=== PATIENT | female | born 1995 | race Caucasian/White ===

== ENCOUNTER → 2021-12-06 15:33 | Outpatient (CLI) | payer OTHER, SELFPAY ==
[2021-12-06 18:11] LABS: COVID19 -Nasal RAPID Negative (Negative)
== END ==
PROVIDERS: PCP Family Medicine; Referring Provider Family Medicine; Visit Provider Family Medicine
DX: Z20.822 Contact with and (suspected) exposure to COVID-19 (principal)
CPT/HCPCS: 87635

== ENCOUNTER → 2021-12-06 15:51 | Outpatient (CLI) | payer OTHER, SELFPAY ==
[2021-12-06 17:37] LABS: Add Manual Diff / Slide Review NO; Basophils Absolute Auto 0 /uL (0-100); Basophils Percent Auto 0.4 % (0-2); Eosinophils Absolute Auto 100 /uL (0-450); Eosinophils Percent Auto 1.5 % (2-4); Hematocrit 40.1 % (36-46); Hemoglobin 13.6 g/dL (12.0-16.0); Lymphocytes Absolute Auto 2000 /uL (1100-4500); Lymphocytes Percent Auto 38.8 % (25-40); Mean Corpuscular HGB Conc 33.9 % (30-36); Mean Corpuscular Hemoglobin 30.6 PG (26-34); Monocytes Absolute Auto 300 /uL (0-900); Monocytes Percent Auto 5.3 % (3-14); Neutrophils Absolute Auto 2900 /uL (1500-7000); Platelet Count 301 X10^3/uL (150-400); Red Blood Cell Count 4.46 X10^6/uL (4.0-5.2); Red Cell Distribution Width 13.3 % (11.6-14.8); White Blood Cell Count 5.3 X10^3/uL (4.5-11.0)
[2021-12-06 17:59] LABS: Alanine Aminotransferase 24 IU/L (<35); Albumin 4.8 g/dL (3.5-5.0); Albumin Globulin Ratio 1.5 (1.0-2.8); Alkaline Phosphatase 34 U/L (38-126); Aspartate Aminotransferase 62 IU/L (14-36); BUN Creatinine Ratio 16.5 (6-22); Bilirubin Total 0.5 mg/dL (0.2-1.3); Blood Urea Nitrogen 15 mg/dL (7-17); Calcium 9.8 mg/dL (8.4-10.2); Carbon Dioxide 31 mmol/L (22-32); Chloride 104 mmol/L (98-107); Estimated Glomerular Filt Rate > 60.0 mL/min (>60); Globulin 3.1 g/dL (1.7-4.1); Glucose 107 mg/dL (70-100); HEMOLYSIS 19 (0-50); Sodium 140 mmol/L (137-145); Total Protein 7.9 g/dL (6.3-8.2)
[2021-12-06 18:29] LABS: TSH w/ Reflex to FT4 0.79 uIU/mL (0.47-4.68)
== END ==
PROVIDERS: PCP Family Medicine; Referring Provider Family Medicine; Visit Provider Family Medicine
DX: F32.A Depression, unspecified (principal); F41.9 Anxiety disorder, unspecified; R00.2 Palpitations; R09.82 Postnasal drip; Z20.822 Contact with and (suspected) exposure to COVID-19
CPT/HCPCS: 36415; 80053; 84443; 85025; 87635

== ENCOUNTER → 2021-12-24 09:57 | Outpatient (CLI) | payer OTHER, SELFPAY ==
[2021-12-24 12:12] LABS: COVID19 -Nasal RAPID Negative (Negative)
== END ==
PROVIDERS: PCP Family Medicine; Referring Provider Family Medicine Sleep Medicine; Visit Provider Family Medicine Sleep Medicine
DX: Z20.822 Contact with and (suspected) exposure to COVID-19 (principal)
CPT/HCPCS: 87635

== ENCOUNTER → 2021-12-24 12:49 | Outpatient (CLI) | payer OTHER, SELFPAY ==
--- NOTE | 2021-12-24 14:34 | PM.TREADMILL ---
Cardiac Stress Test Report Referral & Results Date Patient Seen: 12/24/21 Requesting provider: Jose Rangel Indication: Tachycardia/chest discomfort Rest ECG: Unremarkable Procedure Note: Today following both written and verbal informed consent, the patient was exercised according to a standard Guerrero protocol. The patient exercised for a total of 11 minutes 52 seconds achieving a maximum heart rate of 183. Patient's maximum systolic blood pressure was 170. This was an estimated 12.8 MET's. There are no ST-T segment changes noted normal heart rate and blood pressure response to exercise no dysrhythmias beyond sinus arrhythmia Function aerobic impairment rates -10% on the active scale or 110% of normal Impression: No evidence of ischemia with excellent exercise capacity and no dysrhythmias of note Please note: Actual ECG tracings can be found in the PACS system.
== END ==
PROVIDERS: PCP Family Medicine; Referring Provider Family Medicine; Visit Provider Family Medicine
DX: R07.89 Other chest pain (principal); R00.2 Palpitations; R00.0 Tachycardia, unspecified; Z20.822 Contact with and (suspected) exposure to COVID-19
CPT/HCPCS: 87635; 93016; 93017; 93018; 93246; C9803

== ENCOUNTER → 2021-12-24 14:52 | Outpatient (CLI) | payer OTHER, SELFPAY ==
--- NOTE | 2022-01-16 08:27 | PM.CARDMON.1 ---
[employer] Report Referral & Results Date Patient Seen: 01/24/22 Requesting provider: Jose Rangel Indication: Palpitations Duration of monitoring (days): 14 Diary information: There were 13 patient triggered events and 3 patient diary entries All 16 of these patient events were associated with sinus rhythm only Data: Minimum heart rate identified was 40 beats per minute at 00:43 on 01/06/2022 Maximum sinus heart rate was 179 beats per minute at 05:31 on 12/25/2021 Maximum overall heart rate was 214 beats per minute at 22:11 on 01/05/2022 during a run nonsustained ventricular tachycardia Less than 1% of identified beats were ventricular or supraventricular ectopic in origin, which would classify them as rare. There was only 1 run of nonsustained monomorphic ventricular tachycardia that was 4 beats in duration at the above rate of 214 beats per minute No atrial fibrillation no pauses no SVT identified on this study Impression: 14 day quality assurance monitor final that fails to demonstrate a cardiac dysrhythmia as a source of patient's perceived sense of palpitations per the multiple patient events associated with sinus rhythm only Single 4 beat run of VT also identified Clinical correlation suggested
== END ==
PROVIDERS: PCP Family Medicine; Referring Provider Family Medicine; Visit Provider Family Medicine
DX: R00.2 Palpitations (principal)
CPT/HCPCS: 93246; 93248

== ENCOUNTER → 2022-03-18 15:35 | Outpatient (CLI) | payer OTHER, SELFPAY ==
[2022-03-18 16:40] LABS: Add Manual Diff / Slide Review NO; Basophils Absolute Auto 0 /uL (0-100); Basophils Percent Auto 0.5 % (0-2); Eosinophils Absolute Auto 100 /uL (0-450); Eosinophils Percent Auto 1.1 % (2-4); Hematocrit 40.6 % (36-46); Hemoglobin 13.6 g/dL (12.0-16.0); Lymphocytes Absolute Auto 1800 /uL (1100-4500); Lymphocytes Percent Auto 33.2 % (25-40); Mean Corpuscular HGB Conc 33.6 % (30-36); Mean Corpuscular Hemoglobin 30.3 PG (26-34); Mean Corpuscular Volume 90.2 fL (80-100); Monocytes Absolute Auto 200 /uL (0-900); Monocytes Percent Auto 4.3 % (3-14); Neutrophils Absolute Auto 3300 /uL (1500-7000); Neutrophils Percent Auto 60.9 % (50-75); Platelet Count 299 X10^3/uL (150-400); Red Cell Distribution Width 13.3 % (11.6-14.8); White Blood Cell Count 5.3 X10^3/uL (4.5-11.0)
[2022-03-18 16:47] LABS: Alanine Aminotransferase 19 IU/L (<35); Albumin 4.7 g/dL (3.5-5.0); Albumin Globulin Ratio 1.6 (1.0-2.8); Alkaline Phosphatase 41 U/L (38-126); Aspartate Aminotransferase 31 IU/L (14-36); Bilirubin Total 0.6 mg/dL (0.2-1.3); Blood Urea Nitrogen 17 mg/dL (7-17); Calcium 8.6 mg/dL (8.4-10.2); Carbon Dioxide 27 mmol/L (22-32); Chloride 104 mmol/L (98-107); Estimated Glomerular Filt Rate > 60 mL/min (>60); Globulin 2.9 g/dL (1.7-4.1); Glucose 101 mg/dL (70-100); HEMOLYSIS < 15 (0-50); Potassium 3.7 mmol/L (3.4-5.1); Sodium 142 mmol/L (137-145); Total Protein 7.6 g/dL (6.3-8.2)
[2022-03-18 17:14] LABS: TSH w/ Reflex to FT4 0.74 uIU/mL (0.47-4.68)
[2022-03-20 16:22] LABS: ANA Screen, IFA Negative (.)
== END ==
PROVIDERS: PCP Family Medicine; Referring Provider Family Medicine; Visit Provider Family Medicine
DX: R51.9 Headache, unspecified (principal); R20.0 Anesthesia of skin; R20.2 Paresthesia of skin; R74.8 Abnormal levels of other serum enzymes
CPT/HCPCS: 36415; 80053; 84443; 85025; 86038

== ENCOUNTER → 2022-07-05 08:21 | Outpatient (CLI) | payer OTHER, SELFPAY ==
--- NOTE | 2022-07-05 08:23 | DI.RAD.S_ITS ---
PROCEDURE: XR HIP W PEL IF DONE RT 2V INDICATIONS: right hip pain TECHNIQUE: AP pelvis with lateral view of the right hip. COMPARISON: [facility], CT, CT ABDOMEN PELVIS WITH CONTRAST, 05/08/2022, 22:04. FINDINGS: Bones: No acute fractures or dislocations. Pelvic ring appears intact. No suspicious bony lesions. Minimal lateral acetabular spurring is seen bilaterally. Soft tissues: The visualized bowel gas pattern is normal. No suspicious soft tissue calcifications. IMPRESSION: No acute osseous abnormality. If the symptoms persist, consider cross sectional imaging such as MRI or CT for further assessment. Dictated by: Danny Rose M.D. on 07/05/2022 at 9:16 Approved by: Danny Rose M.D. on 07/05/2022 at 9:19
== END ==
PROVIDERS: PCP Family Medicine; Referring Provider Family Medicine; Visit Provider Family Medicine
DX: M25.551 Pain in right hip (principal)
CPT/HCPCS: 73502

== ENCOUNTER → 2022-07-22 08:32 | Outpatient (CLI) | payer OTHER, SELFPAY ==
--- NOTE | 2022-07-22 08:33 | DI.US.S_ITS ---
PROCEDURE: US THYROID INDICATIONS: thyroid nodules TECHNIQUE: Real-time scanning was performed of the thyroid gland, with image documentation. COMPARISON: Located [facility], CT, CT ANGIO HEAD AND NECK, 06/05/2022, 13:12. FINDINGS: Right: Thyroid lobe measures 5.9 x 1.6 x 1.6 cm, and is homogeneous in echotexture. Left: Thyroid lobe measures 6.1 x 1.5 x 1.6 cm, and is homogenous in echotexture. Isthmus: 2 mm thick. Nodule number: 1 Location: Right lobe, mid-inferior Size: 0.4 x 0.3 x 0.4 cm. Composition: Predominantly solid Echogenicity: Isoechoic Shape: wider than tall. Margins: Smooth Echogenic foci: None Total points: 3 ACR TI-RADS category: 3, mildly suspicious. Nodule number: 2 Location: Right lobe, inferior Size: 1.1 x 0.7 x 0.5 cm. Composition: Predominantly solid Echogenicity: Isoechoic Shape: wider than tall. Margins: Lobulated Echogenic foci: None Total points: 5 ACR TI-RADS category: 4, moderately suspicious Nodule number: 3 Location: Left lobe, inferior Size: 2.0 x 1.5 x 1.6 cm. Composition: Solid Echogenicity: Isoechoic Shape: wider than tall. Margins: Smooth Echogenic foci: None Total points: 3 ACR TI-RADS category: 3, mildly suspicious. IMPRESSION: 1. Three thyroid nodules are identified as above. None meet TI-RADS criteria for FNA recommendation. 2. Imaging follow-up is recommended in 1 year for nodules #2 and 3. ACR TI-RADS definitions and recommendations: TI-RADS 1 (benign): 0 points. FNA not needed. TI-RADS 2 (not suspicious): 2 points. FNA not needed. TI-RADS 3 (mildly suspicious): 3 points. * FNA if 2.5 cm or larger, follow up if 1.5 cm or larger (at 1, 3, and 5 years). TI-RADS 4 (moderately suspicious): 4-6 points. * FNA if 1.5 cm or larger, follow up if 1 cm or larger (at 1, 2, 3, and 5 years). TI-RADS 5 (highly suspicious): 7 points or more. * FNA if 1 cm or larger, follow up if 0.5 cm or larger (every year for 5 years). Dictated by: Danny Bland M.D. on 07/22/2022 at 9:38 Approved by: Danny Bland M.D. on 07/22/2022 at 9:48
== END ==
PROVIDERS: PCP Family Medicine; Referring Provider Family Medicine; Visit Provider Family Medicine
DX: G43.909 Migraine, unspecified, not intractable, without status migrainosus; E04.2 Nontoxic multinodular goiter
CPT/HCPCS: 76536

== ENCOUNTER 2022-08-17 17:16 | Emergency (ER) | payer OTHER, SELFPAY ==
[2022-08-17] VITALS (7 sets, daily range): BP systolic 112–150; BP diastolic 59–98; PULSE 57–86; RESP 16; TEMP 36.9; O2SAT 96–100; BMI 25.8
[2022-08-17 19:03] LABS: Add Manual Diff / Slide Review NO; Basophils Absolute Auto 0 /uL (0-100); Basophils Percent Auto 0.6 % (0-2); Eosinophils Absolute Auto 200 /uL (0-450); Eosinophils Percent Auto 2.4 % (2-4); Hematocrit 39.2 % (36-46); Hemoglobin 13.1 g/dL (12.0-16.0); Lymphocytes Absolute Auto 2100 /uL (1100-4500); Lymphocytes Percent Auto 33.6 % (25-40); Mean Corpuscular HGB Conc 33.4 % (30-36); Mean Corpuscular Hemoglobin 30.3 PG (26-34); Mean Corpuscular Volume 90.7 fL (80-100); Monocytes Absolute Auto 400 /uL (0-900); Monocytes Percent Auto 7.1 % (3-14); Neutrophils Absolute Auto 3600 /uL (1500-7000); Neutrophils Percent Auto 56.3 % (50-75); Platelet Count 273 X10^3/uL (150-400); Red Blood Cell Count 4.32 X10^6/uL (4.0-5.2); Red Cell Distribution Width 13.7 % (11.6-14.8); White Blood Cell Count 6.3 X10^3/uL (4.5-11.0)
--- NOTE | 2022-08-17 19:09 | ED_ITS ---
HPI - Abdominal Pain <Quang Santos PA-C - Last Filed: 08/17/22 19:51> General Chief Complaint: Abdominal Pain Stated Complaint: abd pain x2 weeks Time Seen by Provider: 08/17/22 17:45 History of Present Illness HPI narrative: Patient is a 27-year-old female who presents to the emergency room today with a main complaint constipation for 2 weeks. Patient states she also has associated abdominal pain started about 5-7 days ago. Described pain as a sharp stabbing pain in the bilateral lower anterior abdomen area. States the pain comes and goes throughout the days. States that her constipation started about 2 weeks ago and her last bowel movement was about 2 days ago. Notice some dark red blood in her stool at that time I had some concerns. Also has complaint of nausea with no vomiting. Also denies chest pain or shortness of breath. Related Data Home Medications Medication Instructions Recorded Confirmed Vitami D3 PO 12/06/21 07/05/22 Previous Rx's Medication Instructions Recorded sumatriptan succinate 25 mg tablet See Rx Instructions PO .COMPLEX 03/18/22 #20 tabs Allergies Allergy/AdvReac Type Severity Reaction Status Date / Time No Known Drug Allergies Allergy Unverified 04/01/22 09:00 Review of Systems <Quang Santos PA-C - Last Filed: 08/17/22 19:51> Review of Systems Narrative: R.O.S.: General: No fever, chills or fatigue. Cardiovascular: No chest pain or palpitations Respiratory: No S.O.B. HEENT: No congestion, ear pain, rhinorrhea, sore throat or tinnitus Gastrointestinal: Constipation with periodic abdominal pain and nausea Skin: No rash or associated abnormalities Musculoskeletal: No pain in muscles or joints, no limitation of range of motion, no paresthesia or numbness. ?? Neurological: Awake, alert and in not apparent distress. No Headaches, changes in vision or other related neurological concerns. Patient History <Quang Santos PA-C - Last Filed: 08/17/22 19:51> Medical History Anxiety and depression (~2008) Asthma (~1999) Headache Heavy menstrual period (~2007) Ovarian cyst (~2014) Painful menstrual periods (~2007) Retinal detachment (~2017) Surgical History Anesthesia History of eye surgery (~12/2018) History of hand surgery (~05/2018) S/P foot surgery, left (~05/2011) Family History Father Alcoholism Mother Autoimmune disease Mental health problem Sjogren's disease Rheumatoid arthritis Lupus Shayan's disease Seizure Sister Mental health problem ADHD Celiac disease Grandfather No problems noted. Grandmother Diabetes mellitus Grandmother Cancer of sinus Lung cancer Macular degeneration Social History Smoking Status: Never smoker Smoking Status: Never smoker Exam <Quang Santos PA-C - Last Filed: 08/17/22 19:51> Narrative Exam Narrative: Physical Exam: ? General: normal appearance, well developed, well nourished, alert, and awake. Not in acute distress. ? Head: Normocephalic, no lesions. Chest: Lungs CTAB, no rales, rhonchi or wheezes. ?? Heart: RRR, no murmurs, rubs or gallops. Eyes: PERRLA, EOM's full, conjunctivae clear. ? Neuro: Physiological, no localizing findings, CN3-12 intact. ?? Extremities: Warm, well perfused, FROM, no deformities, no edema. ?? Skin: Normal, no rashes, no lesions noted. ?? PSYCHIATRIC: The mood is good, no blunted affect. Speech is clear. Thought process is linear, thought content is appropriate. The voice is without significant inflection. Gastrointestinal: Soft; Vague abdominal tenderness in RLQ; negative CVA tenderness; ND; Pos BS with Neg. rebound tenderness. No scars or major deformities noted on Visual Inspection. Initial Vital Signs Initial Vital Signs: Vital Signs Pulse Rate 86 08/17/22 17:31 Blood Pressure 150/98 H 08/17/22 17:31 Pulse Oximetry 99 08/17/22 17:31 <Flor Zafar MD - Last Filed: 08/18/22 04:10> Initial Vital Signs Initial Vital Signs: Vital Signs Pulse Rate 86 08/17/22 17:31 Blood Pressure 150/98 H 08/17/22 17:31 Pulse Oximetry 99 08/17/22 17:31 Course <Quang Santos PA-C - Last Filed: 08/17/22 19:51> Orders Ordered: ED Orders 08/17/22 18:03 CBC Auto Diff [Complete Blood Count AUTO DIFF] Stat CMP [Comprehensive Metabolic Panel] Stat Vital Signs Vital signs: Vital Signs - 8 hr 08/17/22 17:34 Temperature 98.5 F Pulse Rate 66 Respiratory Rate 16 Blood Pressure 150/98 H Pulse Oximetry 100 Oxygen Delivery Method Room Air <Flor Zafar MD - Last Filed: 08/18/22 04:10> Orders Ordered: ED Orders 08/17/22 18:03 CBC Auto Diff [Complete Blood Count AUTO DIFF] Stat CMP [Comprehensive Metabolic Panel] Stat Vital Signs Vital signs: Vital Signs - 8 hr 08/17/22 17:34 Temperature 98.5 F Pulse Rate 66 Respiratory Rate 16 Blood Pressure 150/98 H Pulse Oximetry 100 Oxygen Delivery Method Room Air MDM - Abdominal Pain <Quang Santos PA-C - Last Filed: 08/17/22 19:51> Lab Data Result diagrams: 08/17/22 18:55 08/17/22 18:55 Labs: Lab Results 08/17/22 08/17/22 Range/Units 18:55 18:55 WBC 6.3 (4.5-11.0) X10^3/uL RBC 4.32 (4.0-5.2) X10^6/uL Hgb 13.1 (12.0-16.0) g/dL Hct 39.2 (36-46) % MCV 90.7 (80-100) fL MCH 30.3 (26-34) PG MCHC 33.4 (30-36) % RDW 13.7 (11.6-14.8) % Plt Count 273 (150-400) X10^3/uL Neut % (Auto) 56.3 (50-75) % Lymph % (Auto) 33.6 (25-40) % Blaine % (Auto) 7.1 (3-14) % Eos % (Auto) 2.4 (2-4) % Baso % (Auto) 0.6 (0-2) % Neut # (Auto) 3600 (1621-4525) /uL Lymph # (Auto) 2100 (4211-4816) /uL Blaine # (Auto) 400 (0-900) /uL Eos # (Auto) 200 (0-450) /uL Baso # (Auto) 0 (0-100) /uL Sodium 138 (137-145) mmol/L Potassium 4.0 (3.4-5.1) mmol/L Chloride 105 (98-107) mmol/L Carbon Dioxide 26 (22-32) mmol/L BUN 18 H (7-17) mg/dL Creatinine 0.80 (0.52-1.04) mg/dL Estimated GFR > 60 (>60) mL/min BUN/Creatinine Ratio 22.5 H (6-22) Glucose 86 (70-100) mg/dL Calcium 8.9 (8.4-10.2) mg/dL Total Bilirubin 0.3 (0.2-1.3) mg/dL AST 24 (14-36) IU/L ALT 16 (<35) IU/L Alkaline Phosphatase 41 (38-126) U/L Total Protein 6.9 (6.3-8.2) g/dL Albumin 4.1 (3.5-5.0) g/dL Globulin 2.8 (1.7-4.1) g/dL Albumin/Globulin Ratio 1.5 (1.0-2.8) Point of care testing: Point of Care Testing Test Results Negative Urine Dip Bedside Urine Glucose Negative Bedside Urine Bilirubin - Negative Bedside Urine Ketone - Negative Urine Specific [place] 1.010 Bedside Urine Occult Blood - Negative Bedside Urine pH 6.5 Bedside Urine Protein - Negative Bedside Urine Urobilinogen 0.2 Bedside Urine Nitrite - Negative Bedside Urine Leukocytes - Negative Esterase MDM Narrative Medical decision making narrative: Patient is a 27-year-old female presents to the emergency room today with complaint of constipation and periodically abdominal pain about 2 weeks. Physi riley exam did not reveal any signs of emergent concerns. Liver done to rule out urinary tract infection for any acute or emergent medical etiology. I discussed constipation and advised the patient to use another Fleet enema that she did 2 days ago to have inducible. Patient was also advised to try to manually disimpact and to trial other [id number] products to help with constipation. I also discussed constipation associated emergent concerns. Patient was advised to return should any emergent concerns arise. <Flor Zafar MD - Last Filed: 08/18/22 04:10> Lab Data Labs: Lab Results 08/17/22 08/17/22 Range/Units 18:55 18:55 WBC 6.3 (4.5-11.0) X10^3/uL RBC 4.32 (4.0-5.2) X10^6/uL Hgb 13.1 (12.0-16.0) g/dL Hct 39.2 (36-46) % MCV 90.7 (80-100) fL MCH 30.3 (26-34) PG MCHC 33.4 (30-36) % RDW 13.7 (11.6-14.8) % Plt Count 273 (150-400) X10^3/uL Neut % (Auto) 56.3 (50-75) % Lymph % (Auto) 33.6 (25-40) % Blaine % (Auto) 7.1 (3-14) % Eos % (Auto) 2.4 (2-4) % Baso % (Auto) 0.6 (0-2) % Neut # (Auto) 3600 (4415-4444) /uL Lymph # (Auto) 2100 (3884-7685) /uL Blaine # (Auto) 400 (0-900) /uL Eos # (Auto) 200 (0-450) /uL Baso # (Auto) 0 (0-100) /uL Sodium 138 (137-145) mmol/L Potassium 4.0 (3.4-5.1) mmol/L Chloride 105 (98-107) mmol/L Carbon Dioxide 26 (22-32) mmol/L BUN 18 H (7-17) mg/dL Creatinine 0.80 (0.52-1.04) mg/dL Estimated GFR > 60 (>60) mL/min BUN/Creatinine Ratio 22.5 H (6-22) Glucose 86 (70-100) mg/dL Calcium 8.9 (8.4-10.2) mg/dL Total Bilirubin 0.3 (0.2-1.3) mg/dL AST 24 (14-36) IU/L ALT 16 (<35) IU/L Alkaline Phosphatase 41 (38-126) U/L Total Protein 6.9 (6.3-8.2) g/dL Albumin 4.1 (3.5-5.0) g/dL Globulin 2.8 (1.7-4.1) g/dL Albumin/Globulin Ratio 1.5 (1.0-2.8) Point of care testing: Point of Care Testing Test Results Negative Urine Dip Bedside Urine Glucose Negative Bedside Urine Bilirubin - Negative Bedside Urine Ketone - Negative Urine Specific [place] 1.010 Bedside Urine Occult Blood - Negative Bedside Urine pH 6.5 Bedside Urine Protein - Negative Bedside Urine Urobilinogen 0.2 Bedside Urine Nitrite - Negative Bedside Urine Leukocytes - Negative Esterase Discharge Plan Departure Patient Disposition: Home Clinical Impression: Constipation Instructions: DI for Constipation Activity Restrictions/Additional Instructions: *You have been diagnosed with constipation. Labs ordered and did not reveal the urinary tract infection or any signs of other emergent concerns at this time. I suggest you seizure Fleet enema again does not help we have another bowel movement and you did a couple days ago. I also suggest you monitor her diet and try to increase fiber in diet. As we discussed please return to the emergency room [place] any emergent concerns arise such as intractable pain fever or excess of blood in your stools. [ ] *What to do: *Please continue to take your regular medications as directed. [ ] New medication prescriptions sent to your pharmacy: [ ] [ ] New medication written as a paper prescription [x] No new medications given *Please follow up with your primary care provider in 2-3 days, call for an appointment. Let them know you were seen in the Emergency Department and that we ask that you be seen in follow up. We will electronically transmit a record of today's note if your PCP is in our system *If you do not have a primary care provider please contact the [facility] Resource line at [phone]. They will ask some questions about your medical history and help get you set up with a doctor in the community. *Return to Emergency Department if you should have any new, worsening or concerning symptoms, such as [fever greater than 101 F, shaking chills, worsening pain, persistent vomiting or other bothersome symptoms] Prescriptions: No Action Vitami D3 PO sumatriptan succinate 25 mg tablet See Rx Instructions PO .COMPLEX Qty: 20 0RF Rx Instructions: take 1 tab at onset of headache; if no relief may repeat 1 tab after at least 2 hrs; max = 4 tabs/24 hr PO Referrals: Jose Rangel MD [Primary Care Provider] - Visit Report Forms: Patient Portal/API <Flor Zafar MD - Last Filed: 08/18/22 04:10> Cosign ED Attending Cosignature Attestation: I was immediately available in the department for consultation throughout this patient's visit. I agree with documentation as above. Flor Zafar MD
[2022-08-17 19:14] LABS: Alanine Aminotransferase 16 IU/L (<35); Albumin 4.1 g/dL (3.5-5.0); Albumin Globulin Ratio 1.5 (1.0-2.8); Alkaline Phosphatase 41 U/L (38-126); Aspartate Aminotransferase 24 IU/L (14-36); BUN Creatinine Ratio 22.5 (6-22); Bilirubin Total 0.3 mg/dL (0.2-1.3); Blood Urea Nitrogen 18 mg/dL (7-17); Calcium 8.9 mg/dL (8.4-10.2); Carbon Dioxide 26 mmol/L (22-32); Chloride 105 mmol/L (98-107); Estimated Glomerular Filt Rate > 60 mL/min (>60); Globulin 2.8 g/dL (1.7-4.1); Glucose 86 mg/dL (70-100); HEMOLYSIS < 15 (0-50); Sodium 138 mmol/L (137-145); Total Protein 6.9 g/dL (6.3-8.2)
== END 2022-08-17 19:56 | disposition home or self-care (01) ==
PROVIDERS: Emergency Provider Physician Assistant; PCP Family Medicine
DX: K59.00 Constipation, unspecified (principal)
CPT/HCPCS: 36415; 80053; 81003; 81025; 85025; 99282

== ENCOUNTER 2022-11-07 11:36 | Emergency (ER) | payer OTHER, SELFPAY ==
[2022-11-07 11:32] VITALS: BP 129/88; PULSE 93; RESP 15; TEMP 37.3; O2SAT 100; BMI 26.5
[2022-11-07] MEDS: PANTOPRAZOLE DR 20 MG TABLET PO (11:45)
[2022-11-07] MEDS: diphenhydrAMINE 25 MG TABLET PO (11:45)
--- NOTE | 2022-11-07 12:12 | DI.US.S_ITS ---
PROCEDURE: US PELVIC LIMITED INDICATIONS: Right pelvic pain and concern for torsion. TECHNIQUE: Real-time transabdominal scanning was performed of the pelvic organs, with image documentation. COMPARISON: None. FINDINGS: The uterine body measures 3.7 x 4.8 x 7.7 cm. Normal endometrial thickness. No uterine mass. Simple cyst in the right ovary measuring up to 2.1 cm. Greater than 12 follicles are seen in each ovary, largest measuring 2.1 cm in the right ovary. Most of the follicles measure greater than 1 cm. No free pelvic fluid. IMPRESSION: Multiple bilateral ovarian follicles with no acute finding. We strive to produce accurate, complete, and clear reports of imaging services. To assist us in improving patient care, this report was composed using standard report templates and voice recognition software. Therefore, it may contain abnormal punctuation, insertions and/or omissions. Occasional wrong-word or sound-alike substitutions may occur. Though we review the report and make efforts to correct it, we do recommend that the report be read carefully in proper context to recognize any text inaccuracies. Dictated by: Gab Valenzuela M.D. on 11/07/2022 at 11:50 Approved by: Gab Valenzuela M.D. on 11/07/2022 at 11:52
[2022-11-07] MEDS: ACETAMINOPHEN 325 MG TABLET 975 MG PO (12:48)
--- NOTE | 2022-11-07 12:49 | ED.ALLEREA ---
HPI - Allergic Reaction <BREANNA Herrera - Last Filed: 11/07/22 14:49> General Chief complaint: Allergic Reaction Stated complaint: Allergic Time Seen by Provider: 11/07/22 12:03 Source: patient Mode of arrival: EMS History of Present Illness HPI narrative: This is a 27-year-old female who presents to the emergency department by ambulance for feeling dizzy today, having some shortness of breath and a recent dental infection which she started amoxicillin for today and endorses right lower pelvic pain for the last few days intermittently. She states that she is had congestion with a mild cough on and off, her last menstrual period was 1125, states she had diarrhea a couple days ago, headache, and generally feels lightheaded and dizzy. Related Data Home Medications Medication Instructions Recorded Confirmed Vitami D3 PO 12/06/21 07/05/22 Previous Rx's Medication Instructions Recorded sumatriptan succinate 25 mg tablet See Rx Instructions PO .COMPLEX 03/18/22 #20 tabs ondansetron 4 mg disintegrating 4 mg PO Q8H PRN nausea and 11/07/22 tablet vomiting #10 tabs Allergies Allergy/AdvReac Type Severity Reaction Status Date / Time No Known Drug Allergies Allergy Verified 11/07/22 11:37 Review of Systems <BREANNA Herrera - Last Filed: 11/07/22 14:49> Review of Systems Narrative: Review of systems is negative for acute abnormalities unless otherwise noted in HPI Patient History <BREANNA Herrera - Last Filed: 11/07/22 14:49> Medical History Anxiety and depression (~2008) Asthma (~1999) Headache Heavy menstrual period (~2007) Ovarian cyst (~2014) Painful menstrual periods (~2007) Retinal detachment (~2017) Surgical History Anesthesia History of eye surgery (~12/2018) History of hand surgery (~05/2018) S/P foot surgery, left (~05/2011) Family History Father Alcoholism Mother Autoimmune disease Mental health problem Sjogren's disease Rheumatoid arthritis Lupus Shayan's disease Seizure Sister Mental health problem ADHD Celiac disease Grandfather No problems noted. Grandmother Diabetes mellitus Grandmother Cancer of sinus Lung cancer Macular degeneration Social History Smoking Status: Never smoker Smoking Status: Never smoker alcohol intake frequency: holidays/special occasions only Substance Use Type: does not use Exam <BREANNA Herrera - Last Filed: 11/07/22 14:49> Narrative Exam Narrative: Reviewed vitals signs and nursing notes. General: cooperative, comfortable, in no acute distress, well groomed HEENT: symmetrical facial expressions, moist mucous membranes, bilateral middle ear effusions without erythema, hearing equal bilaterally, oropharynx with mild edema posterior to her right molar, EOMI, without nystagmus, mild congestion, this is what she is taking antibiotics for, no erythema or fluctuance, without drainable abscess Cardiovascular: regular rate and rhythm, without murmur no peripheral edema, warm extremities Respiratory: normal effort, able to speak in complete sentences, without wheezing, stridor, or abnormal breath sounds. No retractions or tachypnea. No shortness of breath GI: abdomen soft, tender to palpation to her right pelvic region over her right ovary, nondistended, without masses, rebound tenderness or exquisite tenderness with exam. MSK: moves all extremities, neurovascularly intact, no weakness, normal tone Skin: brisk capillary refill, without pallor or erythema Neuro: normal speech and cognition, A&O x3, ambulatory, clear speech Psych: mental status is grossly normal, congruent mood, normal affect, pleasant and cooperative Initial Vital Signs Initial Vital Signs: Vital Signs Temperature 99.2 F 11/07/22 11:32 Pulse Rate 93 H 11/07/22 11:32 Respiratory Rate 15 11/07/22 11:32 Blood Pressure 129/88 11/07/22 11:32 Pulse Oximetry 100 11/07/22 11:32 Oxygen Delivery Method 11/07/22 11:32 <Oscar Alves MD - Last Filed: 11/07/22 17:39> Initial Vital Signs Initial Vital Signs: Vital Signs Temperature 99.2 F 11/07/22 11:32 Pulse Rate 93 H 11/07/22 11:32 Respiratory Rate 15 11/07/22 11:32 Blood Pressure 129/88 11/07/22 11:32 Pulse Oximetry 100 11/07/22 11:32 Oxygen Delivery Method 11/07/22 11:32 Course <BREANNA Herrera - Last Filed: 11/07/22 14:49> Orders Ordered: ED Orders 11/07/22 12:12 US pelvic complete Stat 11/07/22 12:44 Covid-19 + FLU A/B + RSV - PCR Stat 11/07/22 12:54 XR chest 1V Stat 11/07/22 13:00 EKG-12 Lead Stat Discontinued Medications Acetaminophen (Acetaminophen 325 Mg Tablet) 975 mg PO NOW ONE Stop: 11/07/22 12:13 Last Admin: 11/07/22 12:48 Dose: 975 mg Documented By: BRE Diphenhydramine HCl (Diphenhydramine 25 Mg Tablet) 25 mg PO NOW ONE Stop: 11/07/22 11:37 Last Admin: 11/07/22 11:45 Dose: 25 mg Documented By: TIFFANIE Ondansetron HCl (Ondansetron 4 Mg/2 Ml Inj) 4 mg IV NOW ONE Stop: 11/07/22 12:56 Last Admin: 11/07/22 13:25 Dose: Not Given Documented By: RETA Ondansetron HCl (Ondansetron 4 Mg Odt) 4 mg SL NOW ONE Stop: 11/07/22 13:25 Last Admin: 11/07/22 13:28 Dose: 4 mg Documented By: RETA Pantoprazole Sodium (Pantoprazole Dr 20 Mg Tablet) 20 mg PO NOW ONE Stop: 11/07/22 11:37 Last Admin: 11/07/22 11:45 Dose: 20 mg Documented By: TIFFANIE Vital Signs Vital signs: Vital Signs - 8 hr 11/07/22 11:32 11/07/22 14:24 Temperature 99.2 F Pulse Rate 93 H 55 L Respiratory Rate 15 18 Blood Pressure 129/88 119/64 Pulse Oximetry 100 100 Oxygen Delivery Method Room Air Room Air <Oscar Alves MD - Last Filed: 11/07/22 17:39> Orders Ordered: ED Orders 11/07/22 12:12 US pelvic complete Stat 11/07/22 12:44 Covid-19 + FLU A/B + RSV - PCR Stat 11/07/22 12:54 XR chest 1V Stat 11/07/22 13:00 EKG-12 Lead Stat Discontinued Medications Acetaminophen (Acetaminophen 325 Mg Tablet) 975 mg PO NOW ONE Stop: 11/07/22 12:13 Last Admin: 11/07/22 12:48 Dose: 975 mg Documented By: BRE Diphenhydramine HCl (Diphenhydramine 25 Mg Tablet) 25 mg PO NOW ONE Stop: 11/07/22 11:37 Last Admin: 11/07/22 11:45 Dose: 25 mg Documented By: TIFFANIE Ondansetron HCl (Ondansetron 4 Mg/2 Ml Inj) 4 mg IV NOW ONE Stop: 11/07/22 12:56 Last Admin: 11/07/22 13:25 Dose: Not Given Documented By: RETA Ondansetron HCl (Ondansetron 4 Mg Odt) 4 mg SL NOW ONE Stop: 11/07/22 13:25 Last Admin: 11/07/22 13:28 Dose: 4 mg Documented By: RETA Pantoprazole Sodium (Pantoprazole Dr 20 Mg Tablet) 20 mg PO NOW ONE Stop: 11/07/22 11:37 Last Admin: 11/07/22 11:45 Dose: 20 mg Documented By: TIFFANIE Vital Signs Vital signs: Vital Signs - 8 hr 11/07/22 11:32 11/07/22 14:24 Temperature 99.2 F Pulse Rate 93 H 55 L Respiratory Rate 15 18 Blood Pressure 129/88 119/64 Pulse Oximetry 100 100 Oxygen Delivery Method Room Air Room Air MDM - Allergic Reaction <Trinidad Dimas [facility] - Last Filed: 11/07/22 14:49> Lab Data Labs: Lab Results 11/07/22 Range/Units 12:44 SARS-CoV-2 (PCR) Negative (Negative) Influenza A (RT-PCR) Flu a negative (NEGATIVE) Influenza B (RT-PCR) Flu b negative (NEGATIVE) RSV (PCR) Negative (Negative) Point of Care Testing Test Results Negative Urine Dip Bedside Urine Glucose Negative Bedside Urine Bilirubin - Negative Bedside Urine Ketone - Negative Urine Specific [place] 1.005 Bedside Urine Occult Blood - Negative Bedside Urine pH 7.0 Bedside Urine Protein - Negative Bedside Urine Urobilinogen - Negative Bedside Urine Nitrite - Negative Bedside Urine Leukocytes - Negative Esterase Imaging Data US - [employer]: Radiologist's Impression: PROCEDURE:? US PELVIC LIMITED ? INDICATIONS:? Right pelvic pain and concern for torsion. ? TECHNIQUE:? Real-time transabdominal scanning was performed of the pelvic organs, with image documentation.? ? COMPARISON:? None. ? FINDINGS:? ? The uterine body measures 3.7 x 4.8 x 7.7 cm.? Normal endometrial thickness.? No uterine mass. ? Simple cyst in the right ovary measuring up to 2.1 cm.? Greater than 12 follicles are seen in each ovary, largest measuring 2.1 cm in the right ovary.? Most of the follicles measure greater than 1 cm.? ? No free pelvic fluid. ? ? IMPRESSION:? Multiple bilateral ovarian follicles with no acute finding. ? ? ? We strive to produce accurate, complete, and clear reports of imaging services. To assist us in improving patient care, this report was composed using standard report templates and voice recognition software. Therefore, it may contain abnormal punctuation, insertions and/or omissions. Occasional wrong-word or sound-alike substitutions may occur. Though we review the report and make efforts to correct it, we do recommend that the report be read carefully in proper context to recognize any text inaccuracies. ? ? Dictated by: Gab Valenzuela M.D. on 11/07/2022 at 11:50 ? ? Approved by: Gab Valenzuela M.D. on 11/07/2022 at 11:52 ? Chest x-ray: Radiologist's Impression: PROCEDURE:? XR CHEST 1V ? INDICATIONS:? Shortness of breath, dizzy ? TECHNIQUE:? One view of the chest was acquired.? ? COMPARISON:? None. ? FINDINGS:? ? Surgical changes and devices:? None.? ? Lungs and pleura:? Lungs are clear.? No pleural effusions or pneumothorax.? ? Mediastinum:? Mediastinal contours appear normal.? Heart size is normal.? ? Bones and chest wall:? No suspicious bony lesions.? Overlying soft tissues appear unremarkable.? ? IMPRESSION:? No acute cardiopulmonary abnormality. ? ? Dictated by: Danny Bland M.D. on 11/07/2022 at 13:43 ? ? Approved by: Danny Bland M.D. on 11/07/2022 at 13:45 ? ECG Data Interpretation: EKG independently reviewed by myself [email or web address] reveals normal sinus rhythm at 64 bpm with regular axis and intervals. No STEMI, ST segment changes, arrhythmia, or acute ischemic changes. MDM Narrative Medical decision making narrative: This is a 27-year-old female presents to the emergency department via EMS for acute onset of hot flushing, dizziness, right lower quadrant pain and states that she felt dizzy. She thought it was related to her amoxicillin dosing she had 10 30 this morning but she was without urticaria, vomiting, anaphylaxis, angioedema, wheezing or abnormal or symptoms consistent with allergic reaction. She complained of right pelvic pain and states she has history of endometriosis. Her last menstrual cycle was 2 weeks ago, urine was negative, urine was negative for infection, chest x-ray is negative for acute cardiopulmonary abnormality, EKG shows normal sinus rhythm at 64 beats per minute without ST changes or arrhythmia, patient has a history of migraines. She was given Tylenol, Toradol, Zofran, and Benadryl, prior to my evaluation she received Protonix as well and her symptoms have mildly improved. On exam she has bilateral middle ear effusions, mild congestion and states she is had an upper respiratory infection for 1 week. Her respiratory panel was negative for influenza, RSV and COVID. Pelvis ultrasound shows normal uterine body measurements with normal endometrial thickness, no masses, simple cyst in the right ovary measuring 2.1 cm, greater than 12 follicles are seen bilateral ovaries without free pelvic fluid. This is most likely consistent with PCOS, patient has nausea associated with a right pelvic. She was given a 2nd dose of Zofran, was p.o. tolerant, encouraged to follow-up with her PCP, differential diagnoses include colitis, viral syndrome, cholecystitis, pancreatitis, perforated viscus, appendicitis diverticulitis, pelvic infection, UTI, nephrolithiasis or ovarian torsion. No evidence on exam or imaging to reflect these findings. No peritoneal signs on abdominal exam. Patient remains p.o. tolerant. Serial abdominal exam without increase in abdominal pain. Extensive conversation about ER return precautions and need for close follow-up. <Oscar Alves MD - Last Filed: 11/07/22 17:39> Lab Data Labs: Lab Results 11/07/22 Range/Units 12:44 SARS-CoV-2 (PCR) Negative (Negative) Influenza A (RT-PCR) Flu a negative (NEGATIVE) Influenza B (RT-PCR) Flu b negative (NEGATIVE) RSV (PCR) Negative (Negative) Point of Care Testing Test Results Negative Urine Dip Bedside Urine Glucose Negative Bedside Urine Bilirubin - Negative Bedside Urine Ketone - Negative Urine Specific [place] 1.005 Bedside Urine Occult Blood - Negative Bedside Urine pH 7.0 Bedside Urine Protein - Negative Bedside Urine Urobilinogen - Negative Bedside Urine Nitrite - Negative Bedside Urine Leukocytes - Negative Esterase Discharge Plan Departure Patient Disposition: Home Clinical Impression: PCOS (polycystic ovarian syndrome), Dizziness Ovarian cyst Qualifiers: Laterality: right Qualified Code(s): N83.201 - Unspecified ovarian cyst, right side Instructions: Polycystic Ovary Syndrome, Ovarian Cyst, Migraine -- Adult Activity Restrictions/Additional Instructions: *You have been diagnosed with an ovarian cyst, it is likely that you have PCOS because you have a large number of follicles in each ovary, your ovarian cyst measures 2.1 cm, it is not a complicated 1 and there is no evidence of free fluid in your pelvis, your endometrium is not thickened and there are no masses, your uterus otherwise looks healthy on ultrasound. Your respiratory panel came back negative for flu and COVID. This could be associated with a complicated migraine, for your symptoms, please use Tylenol and ibuprofen in conjunction, okay to use Zofran for nausea, if you have worsening symptoms, please return to the emergency department, I do not think that this is a allergic reaction at this point. Please take 600 mg of ibuprofen every 6 hours with 650 mg of Tylenol a glass of water with food, please take Zyrtec 20 mg at night for the next week if you have congestion or dizziness symptoms. Okay to use Benadryl in addition to these medications to help if you have a migraine. Zofran works in conjunction with these medications and helps with nausea. *What to do: *Please continue to take your regular medications as directed. [ x] New medication prescriptions sent to your pharmacy: [ [facility]] [ ] New medication written as a paper prescription [ ] No new medications given *Please follow up with your primary care provider in 2-3 days, call for an appointment. Let them know you were seen in the Emergency Department and that we asked that you be seen for follow-up. We will electronically transmit a record of today's note if your PCP is in our system *If you do not have a primary care provider please contact [phone] to establish care with one of the [facility] primary care providers. *Return to Emergency Department if you should have any new, worsening, or concerning symptoms, such as [fever greater than 101F, chills, worsening pain, persistent vomiting or other bothersome symptoms]. Prescriptions: New ondansetron 4 mg tablet,disintegrating 4 mg PO Q8H PRN (Reason: nausea and vomiting) Qty: 10 0RF No Action Vitami D3 PO sumatriptan succinate 25 mg tablet See Rx Instructions PO .COMPLEX Qty: 20 0RF Rx Instructions: take 1 tab at onset of headache; if no relief may repeat 1 tab after at least 2 hrs; max = 4 tabs/24 hr PO Referrals: Jose Rangel MD [Primary Care Provider] - Visit Report Forms: Patient Portal/API <Oscar Alves MD - Last Filed: 11/07/22 17:39> Cosign ED Attending Cosignature Attestation: I was immediately available in the department for consultation. ?This documentation has been reviewed and I agree with assessment and plan. Supervised by Oscar Alves MD
--- NOTE | 2022-11-07 12:54 | DI.RAD.S_ITS ---
PROCEDURE: XR CHEST 1V INDICATIONS: Shortness of breath, dizzy TECHNIQUE: One view of the chest was acquired. COMPARISON: None. FINDINGS: Surgical changes and devices: None. Lungs and pleura: Lungs are clear. No pleural effusions or pneumothorax. Mediastinum: Mediastinal contours appear normal. Heart size is normal. Bones and chest wall: No suspicious bony lesions. Overlying soft tissues appear unremarkable. IMPRESSION: No acute cardiopulmonary abnormality. Dictated by: Danny Bland M.D. on 11/07/2022 at 13:43 Approved by: Danny Bland M.D. on 11/07/2022 at 13:45
[2022-11-07] MEDS: ONDANSETRON 4 MG ODT SL (13:28)
[2022-11-07 13:37] LABS: COVID-19 CEPHEID 4-PLEX PCR Negative (Negative); Influenza A - CEPHEID Flu A NEGATIVE (NEGATIVE); Influenza B - CEPHEID Flu B NEGATIVE (NEGATIVE); Respiratory Syncytial Virus Negative (Negative)
[2022-11-07 14:24] VITALS: BP 119/64; PULSE 55; RESP 18; O2SAT 100
== END 2022-11-07 14:25 | disposition home or self-care (01) ==
PROVIDERS: Emergency Provider Nurse Practitioner Critical Care Medicine; PCP Family Medicine
DX: E28.2 Polycystic ovarian syndrome (principal); R42 Dizziness and giddiness
CPT/HCPCS: 0241U; 71045; 76830; 76856; 81003; 81025; 93005; 93010; 99283

== ENCOUNTER → 2022-12-10 16:59 | Outpatient (CLI) | payer OTHER, SELFPAY ==
[2022-12-10 19:11] LABS: Alanine Aminotransferase 18 IU/L (<35); Albumin 4.5 g/dL (3.5-5.0); Albumin Globulin Ratio 1.6 (1.0-2.8); Alkaline Phosphatase 46 U/L (38-126); Aspartate Aminotransferase 25 IU/L (14-36); BUN Creatinine Ratio 16.7 (6-22); Bilirubin Total 0.5 mg/dL (0.2-1.3); Blood Urea Nitrogen 19 mg/dL (7-17); Carbon Dioxide 27 mmol/L (22-32); Chloride 101 mmol/L (98-107); Estimated Glomerular Filt Rate > 60 mL/min (>60); Globulin 2.9 g/dL (1.7-4.1); Glucose 84 mg/dL (70-100); HEMOLYSIS < 15 (0-50); Lipase 46 U/L (23-300); Potassium 4.1 mmol/L (3.4-5.1); Sodium 138 mmol/L (137-145); Total Protein 7.4 g/dL (6.3-8.2)
[2022-12-11 11:37] LABS: Interpretation Negative (Negative)
[2022-12-17 08:33] LABS: Percent Free Testosterone 0.94 % (0.50-2.80); Testosterone Free 0.36 ng/dL (0.10-0.85); Testosterone Total 38.1 ng/dL (10.0-55.0)
== END ==
PROVIDERS: PCP Family Medicine; Referring Provider Family Medicine; Visit Provider Family Medicine
DX: N83.209 Unspecified ovarian cyst, unspecified side (principal); N92.0 Excessive and frequent menstruation with regular cycle; K21.9 Gastro-esophageal reflux disease without esophagitis; R10.13 Epigastric pain
CPT/HCPCS: 36415; 80053; 82627; 83013; 83690; 84402; 84403

== ENCOUNTER → 2023-07-10 | Outpatient (CLI) | payer OTHER, SELFPAY ==
--- NOTE | 2023-07-10 06:52 | DI.US.S_ITS ---
PROCEDURE: US THYROID INDICATIONS: 1 year follow-up on thyroid nodules. TECHNIQUE: Real-time scanning was performed of the thyroid gland, with image documentation. COMPARISON: [facility], US, US THYROID, 07/22/2022, 8:41. FINDINGS: Right: Thyroid lobe measures 5.9 x 1.6 x 1.6 cm, and is homogeneous in echotexture. Left: Thyroid lobe measures 6.1 x 1.6 x 1.5 cm, and is homogenous in echotexture. Isthmus: 2.7 mm thick. Nodule number: 1 Location: Right mid /inferior posterior Size: 0.6 x 0.5 x 0. 4 cm, 0.4 x 0.4 x 0.3 cm Composition: Predominantly cystic Echogenicity: Anechoic Shape: wider than tall. Margins: Smooth Echogenic foci: None Total points: 0 ACR TI-RADS category: TI-RADS 1 (benign) Nodule number: 2 Location: Right inferior medial Size: 0.8 x 0.8 x 0.5 cm, previously 1.1 x 0.5 x 0.7 cm Composition: Solid Echogenicity: Isoechoic Shape: wider than tall. Margins: Ill-defined Echogenic foci: None Total points: 4 ACR TI-RADS category: TI-RADS 4 (moderately suspicious) Nodule number: 3 Location: Left inferior Size: 2.3 x 2.2 x 1.7 cm, previously 2.1 x 1.6 x 1.5 cm. Composition: Predominantly solid Echogenicity: Isoechoic Shape: wider than tall. Margins: Smooth Echogenic foci: None Total points: 3 ACR TI-RADS category: TI-RADS 3 (mildly suspicious) IMPRESSION: Left mildly suspicious 2.3 cm nodule, not significantly changed since prior ultrasound 07/22/2022. TI-RADS 3. FNA if 2.5 cm or larger, follow up if 1.5 cm or larger (at 1, 3, and 5 years). ACR TI-RADS definitions and recommendations: TI-RADS 1 (benign): 0 points. FNA not needed. TI-RADS 2 (not suspicious): 2 points. FNA not needed. TI-RADS 3 (mildly suspicious): 3 points. * FNA if 2.5 cm or larger, follow up if 1.5 cm or larger (at 1, 3, and 5 years). TI-RADS 4 (moderately suspicious): 4-6 points. * FNA if 1.5 cm or larger, follow up if 1 cm or larger (at 1, 2, 3, and 5 years). TI-RADS 5 (highly suspicious): 7 points or more. * FNA if 1 cm or larger, follow up if 0.5 cm or larger (every year for 5 years). Approved by: Lia Blanco M.D. on 07/18/2023 at 8:54
[2023-07-10 08:39] LABS: Add Manual Diff / Slide Review NO; Basophils Absolute Auto 0 /uL (0-100); Basophils Percent Auto 0.8 % (0-2); Eosinophils Absolute Auto 100 /uL (0-450); Eosinophils Percent Auto 2.4 % (2-4); Hematocrit 39.1 % (36-46); Hemoglobin 13.1 g/dL (12.0-16.0); Lymphocytes Absolute Auto 1500 /uL (1100-4500); Lymphocytes Percent Auto 30.9 % (25-40); Mean Corpuscular HGB Conc 33.5 % (30-36); Mean Corpuscular Hemoglobin 30.8 PG (26-34); Monocytes Absolute Auto 300 /uL (0-900); Monocytes Percent Auto 6.2 % (3-14); Neutrophils Absolute Auto 3000 /uL (1500-7000); Neutrophils Percent Auto 59.7 % (50-75); Platelet Count 281 X10^3/uL (150-400); Red Blood Cell Count 4.25 X10^6/uL (4.0-5.2); Red Cell Distribution Width 13.2 % (11.6-14.8)
[2023-07-10 09:05] LABS: Alanine Aminotransferase 30 IU/L (<35); Albumin Globulin Ratio 1.5 (1.0-2.8); Alkaline Phosphatase 43 U/L (38-126); Aspartate Aminotransferase 31 IU/L (14-36); BUN Creatinine Ratio 19.5 (6-22); Bilirubin Total 0.2 mg/dL (0.2-1.3); Blood Urea Nitrogen 17 mg/dL (7-17); Calcium 8.8 mg/dL (8.4-10.2); Carbon Dioxide 30 mmol/L (22-32); Chloride 101 mmol/L (98-107); Cholesterol 127 mg/dL (140-199); Estimated Glomerular Filt Rate > 60 mL/min (>60); Globulin 2.6 g/dL (1.7-4.1); Glucose 101 mg/dL (70-100); HDL Cholesterol 48 mg/dL (40-60); HEMOLYSIS < 15 (0-50); LDL Cholesterol Calculated 71 mg/dL (<100); Potassium 4.5 mmol/L (3.4-5.1); Sodium 135 mmol/L (137-145); Total Protein 6.6 g/dL (6.3-8.2); Triglycerides 38 mg/dL (35-150)
[2023-07-10 09:40] LABS: TSH w/ Reflex to FT4 0.95 uIU/mL (0.47-4.68)
== END ==
PROVIDERS: PCP Family Medicine; Referring Provider Family Medicine; Visit Provider Family Medicine
DX: E04.2 Nontoxic multinodular goiter (principal); F32.A Depression, unspecified; F41.9 Anxiety disorder, unspecified; Z00.00 Encounter for general adult medical examination without abnormal findings
CPT/HCPCS: 36415; 76536; 80053; 80061; 84443; 85025